=== PATIENT | female | born 1965 | race Caucasian/White ===

== ENCOUNTER 2016-12-08 06:41 | Day surgery (SDC) | payer OTHER ==
[~2016-12-08] VITALS: Ht 170.2 cm; Wt 75.8 kg
[~2016-12-08 06:41] MED LIST: TIROSINT100 MCG PO
--- NOTE | 2016-12-08 08:07 | NUR ---
12/08/16 0807 Lita Coto 0754: PT ARRIVED TO PACU MAINTAING OWN AIRWAY AND ASLEEP. VSS.
--- NOTE | 2016-12-10 08:29 | OR ---
[facility] [address], [place] [address] Signed DATE OF PROCEDURE: 12/08/16 PREOPERATIVE DIAGNOSIS: Screening. POSTOPERATIVE DIAGNOSIS: Unremarkable colonoscopy. PROCEDURE: Colonoscopy without biopsy. ESTIMATED BLOOD LOSS: None. INDICATIONS Olivia is a 51-year-old female who asked to see me for her initial screening colonoscopy. She has no lower GI complaints. There is no family history of colon cancer or polyps. In the office, I gave her a pamphlet on colonoscopy. We discussed the nature of the test along with the risks including, but not limited to gas bloating, crampy abdominal pain, bleeding, perforation, requiring surgery, and missed diagnosis. We also discussed the need for IV conscious sedation. She expressed understanding and wished to proceed. PROCEDURE NOTE Olivia was taken into our endoscopy suite and placed in the left lateral decubitus position. She was given IV sedation with 7 mg of Versed and 150 mcg of Fentanyl. A digital rectal exam was performed and this was unremarkable. The adult colonoscope was then introduced and advanced all around into the cecum under direct visualization of camera without difficulty. Her prep was quite excellent. The scope was then slowly withdrawn. There was no evidence of any pathology throughout the entire colon or rectum. Upon retroflexion of the scope, there was no additional pathology noted above the anal canal. After this, the gas was suctioned out and the colonoscope removed. Olivia tolerated the procedure quite well. RECOMMENDATIONS Olivia can follow up in 10 years for repeat colonoscopy. MD FRANCISCO Brian/Modl /[id number] Electronically Signed By: ROXANN ART MD 12/10/16 0829 PATIENT NAME: OLIVIA KENNY OPERATIVE REPORT DATE OF : 67 PHYSICIAN: ROXANN ART MD REPORT #: [id number] REPORT IS CONFIDENTIAL AND NOT TO BE RELEASED WITHOUT AUTHORIZATION [address] [facility] [place] [address] Signed cc: Linda Geller PA-C Electronically Signed By: ROXANN ART MD 12/10/16 0829 PATIENT NAME: OLIVIA KENNY OPERATIVE REPORT DATE OF : 67 PHYSICIAN: ROXANN ART MD REPORT #: [id number] REPORT IS CONFIDENTIAL AND NOT TO BE RELEASED WITHOUT AUTHORIZATION
== END 2016-12-08 08:51 | disposition home or self-care (01) ==
LOC: DS 06:41 → OPS 06:41
PROVIDERS: Colon & Rectal Surgery
PROC: 0DJD8ZZ Inspection of Lower Intestinal Tract, Via Natural or Artificial Opening Endoscopic (ICD-10-PCS; principal; 2016-12-08 06:45)
DX: Z12.11 Encounter for screening for malignant neoplasm of colon (principal); E03.9 Hypothyroidism, unspecified; Z79.899 Other long term (current) drug therapy; Z90.710 Acquired absence of both cervix and uterus; Z98.890 Other specified postprocedural states; Z87.891 Personal history of nicotine dependence
CPT/HCPCS: 99152; 99153; J2250; J3010; J7120